=== PATIENT | male | born 1935 | race Caucasian/White ===

== ENCOUNTER 2017-07-25 10:38 | Emergency (ER) | payer OTHER ==
[~2017-07-25] VITALS: Ht 177.8 cm; Wt 61.1 kg
[~2017-07-25 10:38] MED LIST: ACETAMINOPHEN650 M2 PO; ADULT LOW DOSE81 M1 PO; ALDACTONE25 MG PO; ALTACE10 MG; ASPIRIN81 M2 PO; AUGMENTIN875 MG PO; BACTRIM,SEPT1 TABLET PO; BUMETANIDE1 MG PO; CENTRUM SILVER1 EAC3 PO; CEPHALEXIN500 MG PO; CICLOPIROX30 GM TP; CIPRO500 MG PO; CLINDAMYCIN HC300 MG PO; COLACE100 MG PO; CYANOCOBALAM1000 MCG PO; Colace PO; ECOTRIN325 MG PO; ELIQUIS2.5 MG PO; FOLIC ACID0.8 MG PO; Feosol PO; IRON325 M1 PO; Iron PO; K-DUR20 MEQ PO; KEFLEX500 MG PO; KENALOG,ARISTOC80 GM TP; LASIX20 MG PO; LIPITOR40 MG; LIPITOR40 MG PO; LOPRESSOR50 MG PO; MAGNESIUM OXID500 MG PO; MAGNESIUM100 MG PO; MAGOX 400400 MG PO; METOLAZONE2.5 MG PO; METOLAZONE5 MG PO; METOPROLOL TART25 MG PO; Magnesium PO; NITROSTAT0.4 MG SL; NON-ASPIRIN PA500 MG PO; PANTOPRAZOLE SO40 MG PO; PLAVIX75 MG PO; PRADAXA150 MG; PRADAXA150 MG PO; PROTONIX40 MG PO; Protonix PO; RAMIPRIL5 MG PO; RANITIDINE HCL150 M1 PO; REQUIP0.5 MG PO; REVATIO20 MG PO; ROPINIROLE HCL5 MG PO; SPIRONOLACTONE25 MG PO; STOOL SOFTENER100 MG PO; STOOL SOFTENER240 MG PO; TORSEMIDE20 MG PO; TRAZODONE HCL50 MG PO; TYLENOL 8 HOUR650 MG; TYLENOL ARTHRI650 M2 PO; TYLENOL ARTHRI650 MG PO; ULTRAM50 MG PO; XARELTO15 MG PO; ZANTAC75 MG
[2017-07-25] MEDS ORDERED: KEFLEX500 MG PO (13:23)
[2017-07-25 14:08] VITALS: BP 123/70
== END 2017-07-25 14:08 | disposition home or self-care (01) ==
LOC: EME 10:38
PROC: 0HQGXZZ Repair Left Hand Skin, External Approach (ICD-10-PCS; principal; 2017-07-25)
DX: S61.012A Laceration without foreign body of left thumb without damage to nail, initial encounter (principal); W31.2XXA Contact with powered woodworking and forming machines, initial encounter; M79.5 Residual foreign body in soft tissue; I10 Essential (primary) hypertension; K21.9 Gastro-esophageal reflux disease without esophagitis; Z79.01 Long term (current) use of anticoagulants; Z79.02 Long term (current) use of antithrombotics/antiplatelets
CPT/HCPCS: 73140; 99281; 99283; S0020